=== PATIENT | female | born 1975 | race Two or more races ===

== ENCOUNTER → 2016-04-18 | Outpatient (CLI) | payer OTHER, BC | LOC: LAB 14:49 | PROVIDERS: ATTEND Internal Medicine Medical Oncology | DX: D68.0 Von Willebrand disease (principal) | CPT/HCPCS: 85002 ==

== ENCOUNTER 2017-04-25 07:53 | Day surgery (SDC) | payer BC ==
[~2017-04-25 07:53] MED LIST: PROPOFOL INJ 200 MG/20 ML VIAL IV ONE
[2017-04-25] MEDS ORDERED: PROPOFOL INJ 200 MG/20 ML VIAL IV ONE (09:49)
[2017-04-25 10:22] VITALS: BP 120/74
--- NOTE | 2017-04-25 15:57 | Operative Report ---
Operative Report DATE OF SURGERY: 04/25/17 Operative Report: The risks, benefits and alternatives of the procedure including risks of bleeding, perforation requiring surgery are explained to the patient in detail and informed consent was obtained. Patient is taken back to the endoscopy suite and placed in a left, lateral decubital position. Timeout was called. Propofol medications administered. A rectal examination was done which did not reveal any masses, tears or fissures. An Olympus videoscope was inserted into the patient's rectum. The scope was then carefully advanced all the way to the cecum. Patient has a very redundant colon. The right side of the colon is normal prep. The cecum was identified by the usual anatomical landmarks including the ileocecal valve as well as the appendiceal office. Photodocumentation is obtained. The scope was then sequentially pulled back via the rest segments of the colon including the ascending colon, hepatic flexure, transverse colon, splenic flexure, descending colon and finding to the rectosigmoid portions of the colon. Retroflexion maneuvers performed. The risks benefits and alternatives of the procedure explained to the patient in detail and informed consent is obtained.A GIF Olympus video scope was inserted into the patient's mouth and hypopharynx, the esophagus is identified intubated and insufflated, the scope was then advanced through the esophagus stomach pouch, afferent and efferent loops. PREOPERATIVE DIAGNOSIS: Status post gastric bypass surgery. Iron deficiency anemia POSTOPERATIVE DIAGNOSIS: Moment; information status post biopsy. Mild gastritis noted in the pouch status post biopsy rule out Helicobacter pylori. No active bleeding noted OPERATION: Colonoscopy with biopsy. EGD with biopsy SURGEON: BARBARA [facility] ANESTHESIA: LMAC TISSUE REMOVED OR ALTERED: As noted above. COMPLICATIONS: None. ESTIMATED BLOOD LOSS: None. INTRAOPERATIVE FINDINGS: As noted above. PROCEDURE: Patient tolerated procedure well. No immediate postprocedure complications are noted. Patient discharged in good condition. Discharge date 04/25/2017. Discharge diet: Regular. Discharge activity: Regular. 2-3 week follow-up to discuss findings. Patient is instructed call the office or proceed to the emergency room should there be any further problems or questions. We will await pathology.
== END 2017-04-25 10:30 | disposition home or self-care (01) ==
LOC: END 07:53
PROVIDERS: ATTEND Internal Medicine Gastroenterology
PROC: 0DBE8ZX Excision of Large Intestine, Via Natural or Artificial Opening Endoscopic, Diagnostic (ICD-10-PCS; principal; 2017-04-25 09:30)
PROC: 0DB68ZX Excision of Stomach, Via Natural or Artificial Opening Endoscopic, Diagnostic (ICD-10-PCS; 2017-04-25 09:30)
DX: D50.0 Iron deficiency anemia secondary to blood loss (chronic) (principal); K29.30 Chronic superficial gastritis without bleeding; Z98.84 Bariatric surgery status; K21.9 Gastro-esophageal reflux disease without esophagitis; F41.1 Generalized anxiety disorder; F42.9 Obsessive-compulsive disorder, unspecified; G25.81 Restless legs syndrome; Z79.899 Other long term (current) drug therapy; Z88.8 Allergy status to other drugs, medicaments and biological substances
CPT/HCPCS: 43239; 45380; 88342 ×2; 88305 ×2; J2704; 813

== ENCOUNTER → 2020-01-03 | Outpatient (CLI) | payer BC ==
--- NOTE | 2020-01-03 11:07 | RADIOLOGY REPORT (SQ) ---
EXAM DESCRIPTION: CHEST PA/LATERAL IMAGES COMPLETED DATE/TIME: 01/03/2020 10:19 am REASON FOR STUDY: CHEST PAIN ON BREATHING COMPARISON: None. EXAM PARAMETERS: NUMBER OF VIEWS: two views TECHNIQUE: Digital Frontal and Lateral radiographic views of the chest acquired. RADIATION DOSE: NA LIMITATIONS: none FINDINGS: LUNGS AND PLEURA: No opacities, masses or pneumothorax. No pleural effusion. MEDIASTINUM AND HILAR STRUCTURES: No masses or contour abnormalities. HEART AND VASCULAR STRUCTURES: Heart normal size. No evidence for failure. BONES: No acute findings. HARDWARE: None in the chest. OTHER: No other significant finding. IMPRESSION: NO SIGNIFICANT RADIOGRAPHIC FINDING IN THE CHEST. TECHNICAL DOCUMENTATION: JOB ID: [id number] 2010 [employer]- All Rights Reserved Reading location - IP/workstation name: [email or web address]
== END ==
LOC: OD 09:57
PROVIDERS: ATTEND Nurse Practitioner Family
DX: R07.1 Chest pain on breathing (principal)
CPT/HCPCS: 71046